=== PATIENT | female | born 1965 | race Caucasian/White ===

== ENCOUNTER → 2016-09-25 13:46 | Outpatient (CLI) | payer MEDICARE, MEDICAID | END | disposition home or self-care (01) | LOC: D.CT 13:46 | DX: R11.2 Nausea with vomiting, unspecified (principal); R10.9 Unspecified abdominal pain ==

== ENCOUNTER 2017-01-31 16:07 | Inpatient (IN) | payer MEDICARE, MEDICAID ==
--- NOTE | 2017-01-31 16:33 | NUR ---
TRANSFER FROM ADMISSIONS BY W/C. OREINTED TO ROOM. CALL LIGHT IN REACH. WILL CONT. PLAN OF CARE.
--- NOTE | 2017-01-31 16:52 | NUR ---
RECIVED FROM DR SOTO. TO ROOM 2124. ADMIT ASSESSMENT PER RN
[2017-01-31 17:42] VITALS: BP 112/58; BMI 26.7
[2017-01-31 18:02] VITALS: BP 112/58
--- NOTE | 2017-01-31 18:21 | NUR ---
WITHOUT CHANGES OR DISTRESS NOTED AT THIS TIME. DENIES NEEDS.
[2017-01-31 18:31] LABS: BASOPHILS 0.2 % (0-2); EOSINOPHILS 0 % (0-7); HEMATOCRIT 34.8 % (36.0-48.0); HEMOGLOBIN 11.5 g/dL (12-16); IMMATURE GRANULOCYTES 0.5 % (0-5); LYMPHOCYTES 11.3 % (15-50); MCH 33.4 pg (26.0-34.0); MCV 101.2 fL (80.0-100.0); MEAN PLATELET VOLUME 9.8 fL (7.4-10.4); PLATELET COUNT 113 10x3/uL (130-400); RBC 3.44 10x6/uL (4.00-5.40); RDW 16.9 % (11.5-14.5); WBC 14.6 10x3/uL (4.8-10.8)
[2017-01-31 18:46] LABS: ALBUMIN 2.3 g/dL (3.4-5.0); ALKALINE PHOSPHATASE 91 U/L (46-116); ALT (SGPT) 12 U/L (10-68); BILIRUBIN - TOTAL 0.77 mg/dL (0.2-1.3); CALC OSMOLALITY 267 mosm/kg (275-300); CALCIUM 8.3 mg/dL (8.5-10.1); CARBON DIOXIDE 31.3 mmol/L (21.0-32.0); CHLORIDE - SERUM 96 mmol/L (98-107); CREATININE - SERUM 0.7 mg/dL (0.6-1.3); GLUCOSE 165 mg/dL (74-106); POTASSIUM - SERUM 3.3 mmol/L (3.5-5.1); PROTEIN - SERUM 5.8 g/dL (6.4-8.2); SODIUM 133 mmol/L (136-145); UREA NITROGEN 7 mg/dL (7-18); eGFR NON AFRICAN AMERICAN > 90 mL/min (90-120)
[2017-01-31 20:00] VITALS: BP 95/43
--- NOTE | 2017-01-31 20:34 | NUR ---
INITIAL ROUNDS COMPLETD AT 1915 HRS. PT DENIED ANY DISCOMFORT. ASSESSMENT COMPLETED AT 2010 HRS. VSS. IV TO R INFUSAPORT WITH NS AT 20CC/HR. IV PATENT. LUNGS DIMINISHED IN BASES BILAT. PASCUAL. 1+ EDEMA NOTED TO BILAT FEET. PARTIAL L MASECTOMY NOTED. PM FSBS 149. PT DECLINED PM LANTUS SHE HAS NO APPETITE. WILL CONTINUE TO MONITOR. SR UP X2, CALL LIGHT WITHIN VINCENT.
--- NOTE | 2017-01-31 21:52 | NUR ---
SPOUSE AT BEDSIDE. PT DENIES ANY DISCOMFORT. WILL CONTINUE TO MONITOR.
--- NOTE | 2017-01-31 23:55 | NUR ---
PT AWAKE; DENIES ANY DISCOMFORT. WILL CONTINUE TO MONITOR.
[2017-02-01] VITALS (7 sets, daily range): BP systolic 86–113; BP diastolic 45–57; BMI 26.6
[2017-02-01 01:18] LABS: APPEARANCE CLEAR (CLEAR); BILIRUBIN NEGATIVE (NEGATIVE); COLOR YELLOW (YELLOW); GLUCOSE 1000 mg/dL (NEGATIVE); KETONE NEGATIVE (NEGATIVE); NITRITE NEGATIVE (NEGATIVE); PH 7.5 (5.0-6.0); PROTEIN NEGATIVE (NEGATIVE); SPECIFIC GRAVITY 1.005 (1.005-1.020); UROBILINOGEN NORMAL (NORMAL)
--- NOTE | 2017-02-01 02:12 | NUR ---
PT RESTING WITH EYES CLOSED. RESP EVEN AND REGULAR. SR UP X2, CALL LIGHT WITHIN REACH.
--- NOTE | 2017-02-01 04:09 | NUR ---
PT RESTING WITH EYES CLOSED. RESP EVEN AND REGULAR. SR UP X2, CALL LIGHT WITHIN REACH AND SPOUSE AT BEDSIDE.
--- NOTE | 2017-02-01 05:31 | NUR ---
VSS THROUGHOUT NIGHT. PT DENIED ANY DISCOMFORT. NEEDS MET; WILL CONTINUE TO MONITOR.
--- NOTE | 2017-02-01 10:29 | NUR ---
PT LAYING TO LEFT SIDE SLEEPING DENIES NEEDS. REFUSES TO TAKE A SHOWER TODAY.
--- NOTE | 2017-02-01 11:36 | NUR ---
ASSESSMENT COMPLETE. PATIENT IS RESTING AND REPORTS PAIN IN HER HEAD. PAIN TREATED ORDERED. PATIENT REPORTS PAIN REDUCED FROM A 9 TO A 5. LUNG SOUNDS DIMINISHED. PATIENT UP WITH ASSISTANCE AND NOT ON SCD'S AT THIS TIME. DENIES ANY NEEDS.
--- NOTE | 2017-02-01 15:58 | NUR ---
RESTING ON RIGHT SIDE, REPORTS 5 OUT OF 10 PAIN LEVEL. REPORTS REDUCED PAIN BEHIND HER EYES. LUNG SOUNDS DIMINISHED. ROOM IS DARK, FAMILY AT BEDSIDE.
--- NOTE | 2017-02-01 16:09 | NUR ---
PATIENT REPORTS REDUCED PAIN TO A 3. RESTING COMFORTABLY. DENIES ANY NEEDS AT THIS TIME.
[2017-02-01] MEDS ORDERED: NEURONTIN 300300 MG PO (19:06)
[2017-02-01] MEDS ORDERED: ELIQUIS5 MG PO (19:08)
[2017-02-01] MEDS ORDERED: INVOKANA300 MG PO (19:09)
[2017-02-01] MEDS ORDERED: MYRBETRIQ25 MG PO (19:10)
[2017-02-01] MEDS ORDERED: LANTUS SOL100 UNIT/1 SC (19:11)
[2017-02-01] MEDS ORDERED: FUROSEMIDE20 MG PO (19:12)
[2017-02-01] MEDS ORDERED: KLOR-CON20 MEQ/PKT (19:14)
[2017-02-01] MEDS ORDERED: PROAIR HFA8.5 GM INH (19:15)
--- NOTE | 2017-02-01 21:38 | NUR ---
INITIAL ROUNDS DEANNA T 1915 HRS. PT DENIED ANY DISCOMFORT AND FAMILY AT BEDSIDE. ASSESSMENT COMPLETED AT 1950 HRS. IV TO R INFUSAPORT SL. LUNGS DIMINISHED IN BASES BILAT. LUNGS DIMINISHED IN BASES BILAT. TRACE PEDAL EDEMA NOTED. ALERT AND ORIENTED TO PERSON, PLACE AND TIME. PM FSBS 308. PM LANTUS 30UNITS GIVEN SUB-Q TO UPPER L ARM. PM MEDS GIVEN. PT CURRENTLY WATCHNG TV, SPOUSE AT BEDSIDE. SR UP X2, CALL LIGHT WITHIN REACH.
--- NOTE | 2017-02-02 00:32 | NUR ---
PT RESTING WITH EYES CLOSED. RESP EVEN AND REGULAR. SR UP X2, CALL LIGHT WITHIN REACH.
--- NOTE | 2017-02-02 01:21 | NUR ---
PT RESTING WITH EYES CLOSED. RESP EVEN AND REGULAR. SR UP X2, CALL LIGHT WITHIN REACH.
--- NOTE | 2017-02-02 05:00 | NUR ---
VSS. PT DENIES ANY DISCOMFORT. WILL CONTINUE TO MONITOR.
[2017-02-02 05:03] VITALS: BP 105/61
--- NOTE | 2017-02-02 06:36 | NUR ---
VSS THROUGHOUT NIGHT. PT DENIED ANY DISCOMFORT. NEEDS MET; WILL CONTINUE TO MONITOR.
[2017-02-02 08:00] VITALS: BP 100/56
--- NOTE | 2017-02-02 10:43 | NUR ---
PATIENT NOT IN ROOM AT THIS TIME. PRIMARY NURSE STATES THAT SHE IS OUT FOR A CT HEAD.
--- NOTE | 2017-02-02 11:45 | NUR ---
PATIENT WENT TO HAVE A HEAD CT AND CEST XRAY AT 1100. C/O HEADACHE THAT HAS BEEN PERSISTANT SINCE FRIDAY. MEDICATION ADMINISTERED ORDERED FOR PAIN USING A NUMERIC SCALE. PATIENT IS NOT ON TELEMETRY. HER LUNGS SOUND DEMINISHED. TRACE EDEMA IN FEET. INFUSAPORT ON RIGHT SIDE CLEAN DRY AND INTACT. DENIES ANY NEEDS AT THIS TIME.
[2017-02-02 12:00] VITALS: BP 96/53
[2017-02-02 14:33] LABS: BASOPHILS 0.1 % (0-2); EOSINOPHILS 0 % (0-7); HEMATOCRIT 32.8 % (36.0-48.0); HEMOGLOBIN 10.8 g/dL (12-16); IMMATURE GRANULOCYTES 0.2 % (0-5); LYMPHOCYTES 4.6 % (15-50); MCH 33.3 pg (26.0-34.0); MCHC 32.9 g/dL (31.0-37.0); MCV 101.2 fL (80.0-100.0); MONOCYTES 3.7 % (2-11); NEUTROPHILS 91.4 % (40-80); PLATELET COUNT 111 10x3/uL (130-400); RBC 3.24 10x6/uL (4.00-5.40); RDW 16.9 % (11.5-14.5); WBC 15.8 10x3/uL (4.8-10.8)
[2017-02-02 14:45] LABS: ANION GAP 12.2 mmol/L (8-16); CARBON DIOXIDE 28.5 mmol/L (21.0-32.0); POTASSIUM - SERUM 3.7 mmol/L (3.5-5.1)
[2017-02-02 14:49] LABS: CREATININE - SERUM 0.9 mg/dL (0.6-1.3)
[2017-02-02] MEDS ORDERED: BRINTELLIX10 MG PO (15:19)
[2017-02-02 16:00] VITALS: BP 82/49
--- NOTE | 2017-02-02 16:05 | NUR ---
PATIENT IS RESTING QUIETLY. HER HEADACHE IS MUCH IMPROVED WITH REPORTING PAIN A 3 OUT OF 10. DENIES ANY NEEDS AT THIS TIME.
--- NOTE | 2017-02-02 17:26 | NUR ---
PATIENT RESTING COMFORTABLY. SHE IS ON FSBS 218 AND TREATED ORDERED. PAIN LEVEL IS 3 OUT OF 10. PATIENT WAS ABLE TO EAT HER DINNER SITTING UP IN A CHAIR. DENIES ANY NEEDS AT THIS TIME. INFUSAPORT PATENT.
[2017-02-02 20:00] VITALS: BP 105/60
--- NOTE | 2017-02-02 22:22 | NUR ---
INITIAL ROUNDS COMPLETED AT 1905 HRS. PT DENIED ANY DISCOMFORT. ASSESSMENT COMPLETED AT 1940 HRS. VSS. LUNGS DIMINISHED IN BASES BILAT. R CHEST INFUSAPORT SL. TRACE BILAT PEDAL EDEMA NOTED. PM FSBS 213. 4 UNITS HUMALOG GIVEN PER S/S. SCHEDULED ELIQUIS AND LANTUS GIVEN. PT CURRENTLY RESTING WITH EYES CLOSED. RESP EVEN AND REGULAR. SR UP X2, CALL LIGHT WITHIN REACH.
--- NOTE | 2017-02-03 00:42 | NUR ---
PT RESTING WITH EYES CLOSED. RESP EVEN AND REGULAR. SR UP X2, CALL LIGHT WITHIN REACH.
--- NOTE | 2017-02-03 02:17 | NUR ---
PT RESTING WITH EYES CLOSED. RESP EVEN AND REGULAR. SR UP X2, CALL LIGHT WITHIN REACH.
[2017-02-03 04:00] VITALS: BP 97/47
--- NOTE | 2017-02-03 04:48 | NUR ---
PT RESTING WITH EYES CLOSED. RESP EVEN AND REGULAR. SR UP X2, CALL LIGHT WITHIN REACH.
--- NOTE | 2017-02-03 05:54 | NUR ---
VSS THROUGHOUT NIGHT. SR PER CM. PT DENIED ANY DISCOMOFRT. NEEDS MET; WILL CONTINUE TO MONITOR.
[2017-02-03 06:16] LABS: BASOPHILS 0 % (0-2); EOSINOPHILS 0 % (0-7); HEMOGLOBIN 10.6 g/dL (12-16); IMMATURE GRANULOCYTES 0.3 % (0-5); LYMPHOCYTES 5.7 % (15-50); MCH 33.4 pg (26.0-34.0); MCHC 33.1 g/dL (31.0-37.0); MCV 100.9 fL (80.0-100.0); MEAN PLATELET VOLUME 10.5 fL (7.4-10.4); MONOCYTES 3.2 % (2-11); NEUTROPHILS 90.8 % (40-80); PLATELET COUNT 111 10x3/uL (130-400); RBC 3.17 10x6/uL (4.00-5.40); RDW 16.7 % (11.5-14.5); WBC 14.8 10x3/uL (4.8-10.8)
[2017-02-03 06:30] LABS: ALBUMIN 1.9 g/dL (3.4-5.0); ALKALINE PHOSPHATASE 87 U/L (46-116); ALT (SGPT) 16 U/L (10-68); BILIRUBIN - TOTAL 0.23 mg/dL (0.2-1.3); CALCIUM 8.1 mg/dL (8.5-10.1); CARBON DIOXIDE 30.9 mmol/L (21.0-32.0); CHLORIDE - SERUM 102 mmol/L (98-107); POTASSIUM - SERUM 3.9 mmol/L (3.5-5.1); PROTEIN - SERUM 5.5 g/dL (6.4-8.2); SODIUM 137 mmol/L (136-145); UREA NITROGEN 13 mg/dL (7-18)
[2017-02-03 06:33] LABS: CALC OSMOLALITY 278 mosm/kg (275-300); CREATININE - SERUM 0.6 mg/dL (0.6-1.3); GLUCOSE 188 mg/dL (74-106); eGFR NON AFRICAN AMERICAN > 90 mL/min (90-120)
[2017-02-03 08:39] VITALS: BP 93/43
--- NOTE | 2017-02-03 09:28 | NUR ---
RESTS IN BED WITH CALL LIGHT IN REACH. WILL MONITOR NEEDS.
[2017-02-03 13:37] VITALS: BP 91/53
[2017-02-03 16:04] VITALS: BP 93/46
[2017-02-03 22:18] VITALS: BP 93/52
[2017-02-04] VITALS (7 sets, daily range): BP systolic 85–112; BP diastolic 32–65
[2017-02-04 05:28] LABS: BASOPHILS 0 % (0-2); EOSINOPHILS 0 % (0-7); HEMOGLOBIN 10.8 g/dL (12-16); IMMATURE GRANULOCYTES 0.5 % (0-5); LYMPHOCYTES 6.9 % (15-50); MCH 33.3 pg (26.0-34.0); MCHC 32.7 g/dL (31.0-37.0); MCV 101.9 fL (80.0-100.0); MEAN PLATELET VOLUME 9.9 fL (7.4-10.4); MONOCYTES 3.4 % (2-11); NEUTROPHILS 89.2 % (40-80); PLATELET COUNT 104 10x3/uL (130-400); RBC 3.24 10x6/uL (4.00-5.40)
[2017-02-04 05:37] LABS: WBC 9.6 10x3/uL (4.8-10.8)
[2017-02-04 05:42] LABS: ALBUMIN 1.9 g/dL (3.4-5.0); ALKALINE PHOSPHATASE 76 U/L (46-116); ALT (SGPT) 16 U/L (10-68); CALC OSMOLALITY 280 mosm/kg (275-300); CARBON DIOXIDE 29.2 mmol/L (21.0-32.0); CHLORIDE - SERUM 103 mmol/L (98-107); CREATININE - SERUM 0.7 mg/dL (0.6-1.3); GLUCOSE 181 mg/dL (74-106); POTASSIUM - SERUM 3.9 mmol/L (3.5-5.1); PROTEIN - SERUM 5.5 g/dL (6.4-8.2); SODIUM 138 mmol/L (136-145); UREA NITROGEN 13 mg/dL (7-18); eGFR NON AFRICAN AMERICAN > 90 mL/min (90-120)
--- NOTE | 2017-02-04 06:17 | NUR ---
ASSESSMENT DONE. DENIES NEEDS.
--- NOTE | 2017-02-04 09:01 | NUR ---
UP SOB WITH CALL LIGHT IN REACH. WILL CONT. PLAN OF CARE.
--- NOTE | 2017-02-04 17:28 | NUR ---
WITHOUT CHANGES OR DISTRESS NOTED AT THIS TIME. DENIES NEEDS.
--- NOTE | 2017-02-04 21:28 | NUR ---
PT AWAKE, ALERT, ORIENTED, SITTING UP ON SIDE OF BED, DENIES ANY NEEDS. 2% MILK AND BRAYDON CRACKERS GIVEN WITH PTS 2100 INSULIN ADMINSTRATIONS. CONTINUE TO MONITOR CLOSELY. BED LOW, CALL LIGHT IN REACH, SIDE RAILS X 2.
[2017-02-05 04:00] VITALS: BP 101/53
--- NOTE | 2017-02-05 06:19 | NUR ---
AM LABS DRAWN VIA PORT, PT AWAKE, ALERT, ORIENTED, DENIES ANY NEEDS. CONTINUE TO MONITOR CLOSELY.
[2017-02-05 06:45] LABS: APTT 28.9 SECONDS (22.8-39.4); INR 1.2 (0.85-1.17); PROTIME 15.1 SECONDS (11.6-15.0)
[2017-02-05 06:46] LABS: D-DIMER-QUANTITATIVE 1.74 ug/mLFEU (0.20-0.54)
[2017-02-05 07:00] LABS: ALKALINE PHOSPHATASE 78 U/L (46-116); BILIRUBIN - TOTAL 0.22 mg/dL (0.2-1.3); CALC OSMOLALITY 283 mosm/kg (275-300); CALCIUM 8.2 mg/dL (8.5-10.1); CARBON DIOXIDE 31.7 mmol/L (21.0-32.0); CHLORIDE - SERUM 104 mmol/L (98-107); CREATININE - SERUM 0.6 mg/dL (0.6-1.3); GLUCOSE 189 mg/dL (74-106); LDH 152 U/L (81-234); POTASSIUM - SERUM 4.3 mmol/L (3.5-5.1); PROTEIN - SERUM 5.3 g/dL (6.4-8.2); SODIUM 139 mmol/L (136-145); UREA NITROGEN 16 mg/dL (7-18); eGFR NON AFRICAN AMERICAN > 90 mL/min (90-120)
[2017-02-05 07:10] LABS: ALT (SGPT) 21 U/L (10-68)
[2017-02-05 07:47] LABS: BASOPHILS 0 % (0-2); EOSINOPHILS 0 % (0-7); HEMATOCRIT 30.8 % (36.0-48.0); IMMATURE GRANULOCYTES 0.3 % (0-5); LYMPHOCYTES 15.4 % (15-50); MCH 33.1 pg (26.0-34.0); MCHC 32.5 g/dL (31.0-37.0); MEAN PLATELET VOLUME 10.2 fL (7.4-10.4); MONOCYTES 7.1 % (2-11); NEUTROPHILS 77.2 % (40-80); PLATELET COUNT 106 10x3/uL (130-400); RBC 3.02 10x6/uL (4.00-5.40); RDW 16.9 % (11.5-14.5); WBC 9.1 10x3/uL (4.8-10.8)
--- NOTE | 2017-02-05 07:50 | NUR ---
ASSESSMENT DONE. DENIES NEEDS.
[2017-02-05 08:00] VITALS: BP 113/51
--- NOTE | 2017-02-05 08:34 | NUR ---
UP SOB EATING BRK. NO NEEDS VOICED. CALL LIGHT IN REACH. WILL CONT. PLAN OF CARE.
--- NOTE | 2017-02-05 10:49 | NUR ---
Nutrition Follow Up: Pt is eating 97% meal avg on a diabetic diet. +BM 02/03/17. Wt stable. Labs reviewed - Glucose elevated. Meds noted including Solu-Medrol. Rec continue current diet. RD following.
--- NOTE | 2017-02-05 10:58 | NUR ---
WALK TEST: RESTING ON ROOM AIR 95%, ON EXERTION PT TAKED AT 95%.
[2017-02-05 11:51] VITALS: BP 111/58
[2017-02-05] MEDS ORDERED: LEVAQUIN500 MG PO (13:26)
--- NOTE | 2017-02-05 15:16 | NUR ---
DC GIVEN TO PT
--- NOTE | 2017-02-05 15:30 | NUR ---
DC HOME PER PERSONAL CAR
--- NOTE | 2017-02-06 15:00 | NUR ---
Patient Name: AJ HUANG Encounter No: [id number] : 1965 Primary Insurance: [id number] Anticipated DC Date: 02-05-2017 Planned Disposition: Home DCP follow-up note: CM RECEIVED LATE CALL 02-05-17 FROM [facility] WHO REPORTS NOW THAT THEY DO NOT HAVE A NEBULIZER AND WANT CM TO REFER PT ELSEWHERE. [facility] HAS NOT SEEN PT WHO WAS SUPPOSED TO PSYCHOTHERAPIST COUNSELOR THE NEBULIZER FROM THE STORE NOR HAVE THEY BEEN ABLE TO REACH PT VIA PHONE. CM CALLED PT AT [phone], DID NOT RECEIVE ANSWER. ON TODAY, 02-06-17, CM CALLED PT AT [phone]; PT REPORTS SHE WENT TO [facility] AND THEY NEED MEDICAL RECORDS TO GET THE NEBULIZER TODAY. CM CALLED [facility], , SPOKE TO GERMAIN WHO IS PROCESSING ORDER AND REPORTS NEEDING MEDICAL RECORDS FAXED OVER. CM FAXED RECORDS WITH SIGNED DETAILED WRITTEN ORDER THAT WAS OBTAINED FOR BRIANDA FROM DR. ANSARI FOR A NEBULIZER. [facility] TO ARRANGE HOME DELIVERY OF THE NEBULIZER TODAY. Cali Leroy, CASE MANAGEMENT
--- NOTE | 2017-02-12 12:12 | CN ---
PATIENT NAME:AJ CANELA MEDICAL RECORD: [id number] : 67 LOCATION:. D.2124 ADMIT DATE: 01/31/17 ACCOUNT: [id number] CONSULTING PHYSICIAN: ALBA AMAYA MD REFERRING PHYSICIAN: NERIS SHAFFER MD DATE OF CONSULTATION: 02/01/2017 CONSULT REQUESTING PHYSICIAN: Neris Shaffer MD REASON FOR CONSULTATION: Bilateral pneumonia. HISTORY OF PRESENT ILLNESS: Ms. Canela is a 51-year-old female who has a history of breast cancer. She is on chemotherapy, followed by Dr. Luque. According to the patient, she is sick for the last 2-3 days, she has fever, she is coughing, she has shortness of breath with exertion. She was seen in Dr. Shaffer's office yesterday with a fever of 101 and had direct admission to the hospital for pneumonia. Now, she is feeling a little bit better. She is coughing with yellowish color sputum production. Recently, the patient had a cardiac echo in November and she was told that she has a clot in her heart and she was started on Eliquis. REVIEW OF SYSTEMS: Mainly in the history of present illness. PAST MEDICAL HISTORY: 1. CA, breast. 2. Type 2 diabetes mellitus. PAST SURGICAL HISTORY: 1. Tonsillectomy and adenoidectomy. 2. Cast surgery for carpal tunnel syndrome. 3. She has laser surgery. PERSONAL AND SOCIAL HISTORY: The patient is still current everyday smoker. She is a nondrinker. FAMILY HISTORY: Noncontributory. PHYSICAL EXAMINATION: GENERAL: Now, the patient is lying comfortably in bed. She is not in acute distress. VITAL SIGNS: The blood pressure is 113/55, pulse is 93, respirations 14, temperature 99.1, SpO2 is 98% on room air. HEENT: Conjunctivae are pink. Sclerae nonicteric. NECK: Supple, no JVD. CHEST: Excursion is minimal on both sides, bibasilar crackles, wheeze on forceful expiration. HEART: Rhythm regular, normal sound, no murmur. ABDOMEN: Soft. Bowel sounds present. No hepatosplenomegaly. RECTAL: Deferred. EXTREMITIES: No cyanosis, no clubbing, no pedal edema. SKIN: Warm, normal turgor. CENTRAL NERVOUS SYSTEM: The patient is awake and alert. There are no obvious cranial nerve abnormality. The gait was not tested. CHEST RADIOGRAPH: There is bibasilar infiltrate. CONSULT REPORT [id number] AJ CANELA OTHER LABORATORY DATA: CBC: The WBC is 14.6, hemoglobin 11.5, hematocrit is 34.8. Chemistry: Sodium 133, potassium 3.3, BUN is 7, creatinine 0.7. IMPRESSION: 1. Acute exacerbation of chronic obstructive pulmonary disease. 2. Bilateral pneumonia, most likely community-acquired pneumonia. 3. Cancer of the breast and chemotherapy. 4. Leukocytosis. 5. Febrile illness. 6. Atrial thrombus. 7. Tobacco dependence syndrome. 8. Cancer breast. RECOMMENDATION: 1. Continue Levaquin and Rocephin. 2. Methylprednisolone IV. 3. Albuterol, ipratropium nebulizer. 4. Brovana and budesonide nebulizer. 5. Nicotine patch. 6. I will check a cardiac echo. Dr. Orosco, thank you for involving me in the care of Ms. Canela. Follow up labs and chest radiograph. TRANSINT:[id number] Voice Confirmation ID: [id number] DOCUMENT ID: [id number] ALBA AMAYA MD at 1212 CC: [id number] DICTATION DATE: 02/01/17 1446 CUPOLA MELTING SUPERVISOR: 02/01/17 1529 DIS IN 02/05/17 [place] [id number]
== END 2017-02-05 15:30 | disposition home or self-care (01) | DRG 190 ==
LOC: D.M2 16:07 → D.SDCHOLD 19:03 → D.M2 19:04 → D.SDCHOLD 19:05 → D.M2 19:06
PROVIDERS: Family Medicine; Internal Medicine Pulmonary Disease; ADMIT Family Medicine
DX: J44.0 Chronic obstructive pulmonary disease with (acute) lower respiratory infection (principal); J18.9 Pneumonia, unspecified organism; F17.203 Nicotine dependence unspecified, with withdrawal; J44.1 Chronic obstructive pulmonary disease with (acute) exacerbation; D69.6 Thrombocytopenia, unspecified; R51 Headache; E11.65 Type 2 diabetes mellitus with hyperglycemia; D64.81 Anemia due to antineoplastic chemotherapy; C50.919 Malignant neoplasm of unspecified site of unspecified female breast; J32.9 Chronic sinusitis, unspecified; I08.1 Rheumatic disorders of both mitral and tricuspid valves

== ENCOUNTER 2018-06-19 06:38 | Day surgery (SDC) | payer MEDICARE, MEDICAID ==
[~2018-06-19] VITALS: Ht 170.2 cm; Wt 83.9 kg
--- NOTE | ~2018-06-19 | OP ---
PATIENT NAME: AJ HUANG MEDICAL RECORD: [id number] :[birth year] LOCATION:D.OPS ADMISSION DATE: SURGEON: MALCOM DOVER MD DATE OF OPERATION: 06/19/2018 PREOPERATIVE DIAGNOSES: 1. Guaiac-positive stools. 2. Angioectasias of the cecum. 3. Rectal polyp. 4. Condyloma acuminata of the anus with low-grade squamous intraepithelial lesion, LSIL, AIN 1. POSTOPERATIVE DIAGNOSES: 1. Guaiac-positive stools. 2. Angioectasias of the cecum. 3. Rectal polyp. 4. Condyloma acuminata of the anus with low-grade squamous intraepithelial lesion, LSIL, AIN 1. PROCEDURES: 1. Total colonoscopy to cecum. 2. Argon plasma coagulation ablation of the angioectasias of the cecum. 3. Anal evaluation under anesthesia. 4. Anal brushing. 5. Ablation of anal condylomata with the argon plasma prospecting driller helper. SURGEON: Malcom Dover MD SAILING INSTRUCTOR: None. BLOOD LOSS: Minimal. ANESTHESIA: General. COMPLICATIONS: None. The risks, possible complications, and alternatives to procedure were explained to the patient. She elects to proceed. Discussion specifically included but was not limited to, bleeding requiring emergency reoperation, infection. OPERATIVE COURSE: The patient was conveyed to the operating room electively. General anesthesia was induced by the anesthesia staff. The patient was placed in the Colon position. A digital rectal examination was performed. A colonoscope was inserted through the anus. It was easily advanced to the cecum. I identified no polyps and no masses within the rectum or within the colon. There were angioectasias of the cecum. These were ablated utilizing the argon plasma prospecting driller helper with the right colon setting in the forced mode. I slowly withdrew the endoscope. The pullback was greater than a 14-minute pullback. I dragged the folds. A combination of normal imaging and narrow band imaging was utilized. A retroflexed view was obtained in the rectum. The patient was then positioned in the lithotomy position with the buttocks OPERATIVE REPORT [id number] AJ HUANG taped laterally. U-shaped anal retractors were placed. Anal brushings were performed with large stiff brush. This was sent to pathology for cytologic examination. I identified what appeared to be some condylomata of the anus. With the Vaccu suction that we use for viral particles in use, I ablated these areas that were suspicious with the argon plasma prospecting driller helper utilizing the right colon setting in the forced mode. I saw no other suspicious lesions. Gelfoam was applied within the anus and lower rectum. A combination of a steriod preparation and Marcaine was used to infiltrate the perianal tissues. A topical anesthetic ointment was applied to the external hemorrhoids. The patient was then extubated and conveyed to the post-anesthesia care unit where she was in stable condition. TRANSINT:[id number] Voice Confirmation ID: [id number] DOCUMENT ID: [id number] cc: Dr. Emmanuel [phone] MALCOM DOVER MD CC: ANDERS HUTCHISON MD, DR. EMMANUEL, CATRACHO COTTON and NERIS SHAFFER [id number] DICTATION DATE: 07/23/18 173 [facility] AND BAKER: 07/23/18 2[address] [facility] 06/19/18 [place] [id number] [place] [address]
[~2018-06-19 06:38] MED LIST: BAYER CHEWABLE81 MG PO; BRINTELLIX10 MG PO; ELIQUIS5 MG PO; FUROSEMIDE20 MG PO; INVOKANA300 MG PO; JANUMET XR 50-1 EACH PO; KLOR-CON M2020 MEQ PO; LANTUS SOL100 UNIT/1 SC; LEVAQUIN500 MG PO; LIPITOR40 MG PO; MYRBETRIQ25 MG PO; NEURONTIN 300300 MG PO; PEPCID AC20 MG PO; PROAIR HFA8.5 GM INH
[2018-06-19 06:47] LABS: HEMATOCRIT 44.6 % (36.0-48.0); HEMOGLOBIN 14.9 g/dL (12-16); MCH 32.8 pg (26.0-34.0); MCHC 33.4 g/dL (31.0-37.0); MCV 98.2 fL (80.0-100.0); MEAN PLATELET VOLUME 9.2 fL (7.4-10.4); RBC 4.54 10x6/uL (4.00-5.40); RDW 14.7 % (11.5-14.5); WBC 7.1 10x3/uL (4.8-10.8)
[2018-06-19 06:54] LABS: ANION GAP 10.4 mmol/L (8-16); CALCIUM 8.5 mg/dL (8.5-10.1); CARBON DIOXIDE 34.2 mmol/L (21.0-32.0); CREATININE - SERUM 0.9 mg/dL (0.6-1.3); POTASSIUM - SERUM 3.6 mmol/L (3.5-5.1)
[2018-06-19 06:55] LABS: INR 1.04 (0.85-1.17); PROTIME 13.1 SECONDS (11.6-15.0)
[2018-06-19 07:06] VITALS: BP 101/53; Ht 170.2 cm; Wt 83.9 kg
[2018-06-19 07:27] LABS: HCG URINE NEGATIVE (NEGATIVE)
== END 2018-06-19 14:30 | disposition home or self-care (01) ==
LOC: D.OPS 06:38 → D.PAN 08:00 → D.OPS 09:00
PROVIDERS: Anesthesiology; ATTEND Surgery
DX: K55.20 Angiodysplasia of colon without hemorrhage (principal); K62.1 Rectal polyp; K62.82 Dysplasia of anus; A63.0 Anogenital (venereal) warts; Z01.812 Encounter for preprocedural laboratory examination

== ENCOUNTER 2018-07-23 22:04 | Inpatient (IN) | payer MEDICARE, MEDICAID ==
[~2018-07-23] VITALS: Ht 170.2 cm; Wt 76.8 kg
[2018-07-23 22:53] LABS: BASOPHILS 0.1 % (0-2); EOSINOPHILS 0.4 % (0-7); HEMATOCRIT 43.3 % (36.0-48.0); HEMOGLOBIN 14.8 g/dL (12-16); IMMATURE GRANULOCYTES 0.4 % (0-5); LYMPHOCYTES 9.2 % (15-50); MCHC 34.2 g/dL (31.0-37.0); MCV 96.7 fL (80.0-100.0); MEAN PLATELET VOLUME 8.8 fL (7.4-10.4); MONOCYTES 6.7 % (2-11); NEUTROPHILS 83.2 % (40-80); PLATELET COUNT 145 10x3/uL (130-400); RBC 4.48 10x6/uL (4.00-5.40); RDW 14.3 % (11.5-14.5); WBC 13.7 10x3/uL (4.8-10.8)
[2018-07-23 23:07] LABS: ANION GAP 12.4 mmol/L (8-16); BILIRUBIN - TOTAL 0.8 mg/dL (0.2-1.3); CALCIUM 8.7 mg/dL (8.5-10.1); CARBON DIOXIDE 28.1 mmol/L (21.0-32.0); CREATININE - SERUM 0.9 mg/dL (0.6-1.3); POTASSIUM - SERUM 3.5 mmol/L (3.5-5.1); PROTEIN - SERUM 7.3 g/dL (6.4-8.2)
[2018-07-23 23:12] LABS: AMYLASE - SERUM 40 U/L (25-115); LIPASE 343 U/L (73-393)
--- NOTE | 2018-07-23 23:24 | NUR ---
PT IN WITH C/O OF COUGH, LOWER LEFT RIB PAIN, WORSE WITH A DEEP BREATH, SOME WHEEZES TO LLL. FAMILY AT BEDSIDE, NAUSEA PRESENT, DENIES VOMITTING.
[2018-07-24] VITALS (7 sets, daily range): BP systolic 81–121; BP diastolic 48–69; Ht 170.2 cm; Wt 76.8 kg
[2018-07-24] MEDS ORDERED: LEVAQUIN750 MG PO (00:35)
--- NOTE | 2018-07-24 01:06 | NUR ---
UPON DISCHARGE O2 SATS 84%, NOTIFIED, NEW ORDERS OBTAINED, RT CALLED. PT DENIES SOB AND IS WITHOUT DISTRESS AT THIS TIME, CALL LIGHT WITHIN REACH.
[2018-07-24] MEDS ORDERED: PLAVIX75 MG PO (01:08)
[2018-07-24] MEDS ORDERED: HYDROCODON-ACE1 EA10 PO (01:08)
[2018-07-24] MEDS ORDERED: ROBAXIN500 MG PO (01:08)
[2018-07-24] MEDS ORDERED: NORVASC5 MG PO (01:09)
[2018-07-24] MEDS ORDERED: ZYLOPRIM100 MG PO (01:09)
[2018-07-24] MEDS ORDERED: BENICAR40 MG PO (01:10)
[2018-07-24] MEDS ORDERED: DOXYCYCLINE HY100 M2 PO (01:11)
[2018-07-24] MEDS ORDERED: LOZOL 2.5 MG T2.5 MG PO (01:12)
[2018-07-24] MEDS ORDERED: OXYCONTIN10 MG PO (01:12)
[2018-07-24] MEDS ORDERED: ZANAFLEX2 M1 (01:12)
[2018-07-24] MEDS ORDERED: ZYRTEC10 MG PO (01:12)
[2018-07-24] MEDS ORDERED: SYNTHROID125 MCG PO (01:12)
--- NOTE | 2018-07-24 01:20 | NUR ---
O2 SATS AT 93% AFTER UPDRAFT.
[2018-07-24 01:40] LABS: APPEARANCE CLEAR (CLEAR); BILIRUBIN NEGATIVE (NEGATIVE); COLOR YELLOW (YELLOW); GLUCOSE 500 mg/dL (NEGATIVE); KETONE NEGATIVE (NEGATIVE); NITRITE NEGATIVE (NEGATIVE); PROTEIN NEGATIVE (NEGATIVE); SPECIFIC GRAVITY 1.005 (1.005-1.020); UROBILINOGEN NORMAL (NORMAL)
--- NOTE | 2018-07-24 02:05 | NUR ---
ADMITED FROM ER VIA TO 2131....TOLERATED WELL AT TIS TIME SKIN WARM AND DRY LCTA WITH SOME DEMINISHMENT ...DENIES CP..BED IS LOW AND LOCKED BOWEL SOUNDS X2 AND PULSES ARE INTACT. SKIN INTEGRETY IS GOOD
--- NOTE | 2018-07-24 02:40 | NUR ---
PT ARRIVED TO ROOM 2, ADMIT ASSESSMENT COMPLETE. PT TEMP IS 101.1 SPOKE WITH NURSE SOCRATES WHOM GOT REPORT. TEMP TREATED IN ER. PT IS AAO, UP AD OVIDIO. LEFT AC 20G WITH LEVAQUIN INFUSING. S1S2, RRR LUNGS CLEAR WITH DIMINISHED LOWER LOBES. COUGHING STATES NON PRODUCTIVE AT THIS TIME BUT WAS PRODUCTIVE AT HOME. 1.5L O2 WITH 97% PT HAS FULL SET OF DENTURES. DENTURE CUP PROVIDED. PT HAS A SCAB/SORE RIGHT ELBOW, STATES SHE HIT IT ON A TABLE DAYS AGO. PT HAS ACTIVE BOWEL SOUNDS DENIES ANY TENDERNESS. LAST BM 07/23/18 PT HAS AN INFUSAPORT RIGHT CHEST NOT ACCESSED AT THIS TIME FROM PAST CHEMO NEEDS. PT DENIES ANY NEEDS. NO S/S OF DISTRESS. WILL CPOC
--- NOTE | 2018-07-24 04:26 | NUR ---
RESTING AND EASILY ARROUSED VS 155/58 106 99 18
--- NOTE | 2018-07-24 09:59 | NUR ---
PT RESTING IN BED, SHIFT ASSESSMENT PERFORMED. CRYPTOGRAPHIC VULNERABILITY ANALYST REPORTS BP OF 82/58. RESTARTED PT NS AT 125ML. NOTIFIED TENA NGO. CONT O2 AT 2L VIA NC. DENIES PAIN AT THIS TIME, DENIES ANY OTHER NEEDS AT THIS TIME, WILL CONT TO FOLLOW PLAN OF CARE.
--- NOTE | 2018-07-24 12:04 | NUR ---
FSBS 169, PT IS EATING 0-5% OF MEALS, AFRAID OF HYPOGLYCEMIA, WILL HOLD THIS DOSE OF INSULIN AND RECHECK FSBS AT 1600
--- NOTE | 2018-07-24 13:54 | NUR ---
ORDERED ABD ULTRASOUND. PER RADIOLOGY, PT HAS TO BE NPO FOR 8 HRS. PLACED NPO SIGN ON PT DOOR AND EXPLAINED TO PT. PT VERBALIZES UNDERSTANDING
--- NOTE | 2018-07-24 19:26 | NUR ---
RECEIVED REPORT, WILL ASSUME CARE OF PT, SLEEPING, BED IS LOW, SRX2, CALL LIGHT IN REACH, WILL KEEP NPO, UNTIL CT OF ABDOMEN IS COMPLETE
--- NOTE | 2018-07-24 21:20 | NUR ---
WANTING TO GIVE PM MEDS, PT IS NPO FOR ULTRA SOUND
[2018-07-25] VITALS: BP 92/58
[2018-07-25 05:37] LABS: BASOPHILS 0.2 % (0-2); EOSINOPHILS 1.1 % (0-7); HEMATOCRIT 38.1 % (36.0-48.0); HEMOGLOBIN 12.3 g/dL (12-16); IMMATURE GRANULOCYTES 0.2 % (0-5); MCH 32.4 pg (26.0-34.0); MCHC 32.3 g/dL (31.0-37.0); MEAN PLATELET VOLUME 9.1 fL (7.4-10.4); MONOCYTES 6.6 % (2-11); NEUTROPHILS 70.9 % (40-80); PLATELET COUNT 129 10x3/uL (130-400); RDW 14.7 % (11.5-14.5)
[2018-07-25 05:39] LABS: MCV 100.3 fL (80.0-100.0); WBC 6.4 10x3/uL (4.8-10.8)
[2018-07-25 06:02] LABS: CALCIUM 8.4 mg/dL (8.5-10.1); CARBON DIOXIDE 32.2 mmol/L (21.0-32.0); CHLORIDE - SERUM 108 mmol/L (98-107); POTASSIUM - SERUM 3.4 mmol/L (3.5-5.1); SODIUM 144 mmol/L (136-145); UREA NITROGEN 7 mg/dL (7-18)
[2018-07-25 06:20] LABS: CALC OSMOLALITY 285 mosm/kg (275-300); CREATININE - SERUM 0.6 mg/dL (0.6-1.3); GLUCOSE 120 mg/dL (74-106); eGFR NON AFRICAN AMERICAN > 90 mL/min (90-120)
[2018-07-25 06:22] VITALS: BP 96/51
--- NOTE | 2018-07-25 07:00 | NUR ---
RECEIVED REPORT. ASSUMED CARE OF PATIENT. PATIENT REMAINS NPO THIS AM FOR ABDOMINAL ULTRASOUND FOCUING ON GALLBLADDER. CALL LIGHT WITHIN REACH. NO DISTRESS.
--- NOTE | 2018-07-25 07:20 | NUR ---
CALLED [facility] AND SPOKE TO SUHA. SUHA IS CHECKING TO SEE WHY PATIENT NEVER HAD ULTRASOUND OF ABD LAST NIGHT AT 2130 AND PATIENT HAS BEEN NPO SINCE 1630 YESTERDAY. PER SUHA THE ULTRASOUND WAS COMPLETE AT 2030 LAST PM. PATIENT OKAY TO EAT AM MEAL.
[2018-07-25 07:29] LABS: UDS - AMPHET NEGATIVE QUAL (NEGATIVE); UDS - BARB NEGATIVE QUAL (NEGATIVE); UDS - BENZO POSITIVE QUAL (NEGATIVE); UDS - COCAINE NEGATIVE QUAL (NEGATIVE); UDS - OPIATE NEGATIVE QUAL (NEGATIVE); UDS - PCP NEGATIVE QUAL (NEGATIVE); UDS - THC NEGATIVE QUAL (NEGATIVE)
[2018-07-25 09:08] VITALS: BP 104/51
[2018-07-25 11:31] VITALS: BP 104/52
--- NOTE | 2018-07-25 11:49 | NUR ---
FSBS 141. NO INSULIN PER SLIDING SCALE. NO DISTRESS.
[2018-07-25 15:30] VITALS: BP 108/61
--- NOTE | 2018-07-25 16:12 | NUR ---
FSBS 153. 4 UNITS HUMALOG ADMINISTERED PER SLIDING SCALE. NO DISTRESS.
--- NOTE | 2018-07-25 18:16 | NUR ---
DENIES NEEDS. NO DISTRESS.
[2018-07-25 20:00] VITALS: BP 114/54
--- NOTE | 2018-07-25 20:22 | NUR ---
RECEIVED REPORT, WILL ASSUME CARE OF PT, PT SITTING UP IN CHAIR, DENIES ANY NEEDS, CALL LIGHT IN REACH, WILL CONTINUE PLAN OF CARE
[2018-07-26] VITALS: BP 110/51
[2018-07-26 03:00] VITALS: BP 97/41
--- NOTE | 2018-07-26 03:01 | NUR ---
I have reviewed this patient and I concur with the Shift Assessment completed by the Licensed Practical Nurse today this shift.
[2018-07-26 05:00] LABS: BASOPHILS 0.2 % (0-2); EOSINOPHILS 1.8 % (0-7); HEMATOCRIT 37.7 % (36.0-48.0); HEMOGLOBIN 11.9 g/dL (12-16); IMMATURE GRANULOCYTES 0.2 % (0-5); MCH 31.7 pg (26.0-34.0); MCHC 31.6 g/dL (31.0-37.0); MCV 100.5 fL (80.0-100.0); MEAN PLATELET VOLUME 8.9 fL (7.4-10.4); MONOCYTES 8.1 % (2-11); NEUTROPHILS 63.7 % (40-80); PLATELET COUNT 136 10x3/uL (130-400); RBC 3.75 10x6/uL (4.00-5.40); RDW 14.6 % (11.5-14.5); WBC 4.9 10x3/uL (4.8-10.8)
[2018-07-26 05:12] LABS: CALC OSMOLALITY 288 mosm/kg (275-300); CALCIUM 8.5 mg/dL (8.5-10.1); CARBON DIOXIDE 31.5 mmol/L (21.0-32.0); CHLORIDE - SERUM 110 mmol/L (98-107); CREATININE - SERUM 0.6 mg/dL (0.6-1.3); GLUCOSE 135 mg/dL (74-106); POTASSIUM - SERUM 3.6 mmol/L (3.5-5.1); SODIUM 145 mmol/L (136-145); UREA NITROGEN 7 mg/dL (7-18); eGFR NON AFRICAN AMERICAN > 90 mL/min (90-120)
--- NOTE | 2018-07-26 07:00 | NUR ---
RECEIVED REPORT. ASSUMED CARE OF PATIENT. RESTING WITH EYES CLOSED, RESP EVEN AND UNLABORED. NO DISTRESS. CALL LIGHT WITHIN REACH. IV FLUIDS INFUSING ORDERED.
--- NOTE | 2018-07-26 07:22 | NUR ---
SERUM GLUCOSE, 135. NO INSULIN REQUIRED PER SLIDING SCALE.
[2018-07-26 08:32] VITALS: BP 94/50
--- NOTE | 2018-07-26 10:02 | NUR ---
SPOKE WITH RASHID MADSEN ABOUT GIVING LEVAQUIN AGAIN AT THIS TIME WHEN PT RECEIVED AN IV DOSE OF 750MG AT 0100. TENA STATED TO HOLD TODAY DOSE AND START TOMORROW. THANKED HER FOR THE CLARIFICATION.
[2018-07-26] MEDS ORDERED: LEVAQUIN750 MG PO (11:33)
[2018-07-26] MEDS ORDERED: BENICAR20 MG PO (11:34)
--- NOTE | 2018-07-26 11:40 | NUR ---
FSBS 188. 4 UNITS HUMALOG ADMINISTERED AT THIS TIME. SITTING UP IN CHAIR AT THIS TIME. NO DISTRESS.
[2018-07-26 12:27] VITALS: BP 101/53
--- NOTE | 2018-07-26 13:36 | NUR ---
1310 20 GAUGE IV REMOVED FROM LEFT AC. CATHETER TIP INTACT. NO BLEEDING FROM SITE. 2X2 GAUZE APPLIED AND SECURED WITH BANDAID. 1320 DISCHARGE INSTRUCTIONS PROVIDED TO PATIENT. PATIENT STATES SHE HAS NOT TAKEN HTN MEDICATION IN A VERY LONG TIME AND DOES NOT UNDERSTAND WHY THEY HAVE GIVEN HER BENICAR. PATIENT HAS NOT RECIEVED HTN MEDICATION DURING THIS STAY AND THIS LARD MAKER ADVISED PATIENT TO CONSULT WITH HER PCP BEFORE TAKING THIS MEDICATION TO PREVENT BOTTOMING HER BLOOD PRESSURE OUT ONCE SHE GETS HOME. PATIENT STATES SHE WILL CALL HER PCP ON FRIDAY. PATIENT VERBALIZED UNDERSTANDING OF ALL INSTRUCTIONS PROVIDED. PATIENT IS NOW AWAITING FOR HER RIDE TO COME AND PICK HER UP.
--- NOTE | 2018-07-26 13:59 | NUR ---
PATIENT LEFT UNIT VIA WHEELCHAIR WITH ALL PERSONAL BELONGINGS. PATIENT DISCHARGED TO HOME IN NO ACUTE DISTRESS. SPOKE WITH SNOW MAKER IN REGARDS TO THE MEDICATION - DO - AND LYSSA AGREED PATIENT SHOULD NOT TAKE MEDICATION UNTIL SEEN BY PCP.
--- NOTE | 2018-07-27 09:10 | MORECARE ---
CASE MANAGEMENT DISCHARGE SUMMARY PATIENT: AJ HUANG UNIT: [id number] ADM DATE: 07/24/18 AGE: 53 : 67 SEX: F ROOM/BED: D.2132 AUTHOR: MIHAELA QUIROS PHYSICIAN: REFERRING PHYSICIAN: AWAIS WANG MD DATE OF SERVICE: 07/27/18 Discharge Plan Patient Name: AJ HUANG [facility] [facility] 1965 Planned Disposition: Home Anticipated Discharge Date: 07/26/18 Discharge Date: 07/26/2018 Expected LOS: 2 Initial Reviewer: [email or web address] Initial Review Date: 07/27/2018 Generated: 07/27/18 10:10 am Patient Name: AJ HUANG Page [id number] at 0910 All edits/amendments must be made on the electronic document DICTATION DATE: 07/27/18908 AUTOMOTIVE AIRCONDITIONING MECHANIC: JOAQUÍN 07/27/18908 RPT#: [id number] DC DATE:07/26/18 STATUS: DIS IN [facility] [address] [place] [id number] END OF REPORT
== END 2018-07-26 14:03 | disposition home or self-care (01) | DRG 871 ==
LOC: D.ER 22:04 → D.M2 07-24 01:13
PROVIDERS: Emergency Medicine; ADMIT Internal Medicine Nephrology; ATTEND Internal Medicine Nephrology
DX: A41.9 Sepsis, unspecified organism (principal); J18.9 Pneumonia, unspecified organism; J96.01 Acute respiratory failure with hypoxia; N17.9 Acute kidney failure, unspecified; F17.213 Nicotine dependence, cigarettes, with withdrawal; K80.20 Calculus of gallbladder without cholecystitis without obstruction; R16.1 Splenomegaly, not elsewhere classified; D17.79 Benign lipomatous neoplasm of other sites; E78.5 Hyperlipidemia, unspecified; E11.9 Type 2 diabetes mellitus without complications; K21.9 Gastro-esophageal reflux disease without esophagitis; G47.33 Obstructive sleep apnea (adult) (pediatric)